=== PATIENT | male | born 1965 | race African-American/Black ===

== ENCOUNTER 2024-08-06 21:31 | Emergency (ER) | payer MEDICAID ==
[~2024-08-06] VITALS: Ht 175.3 cm; Wt 70.5 kg
[2024-08-06 21:32] VITALS: BP 138/85; PULSE 94; RESP 18; TEMP 98.7; O2SAT 100
== END 2024-08-07 02:30 | disposition left against medical advice (07) ==
LOC: EMS 21:37
DX: S01.412A Laceration without foreign body of left cheek and temporomandibular area, initial encounter (principal); Z53.21 Procedure and treatment not carried out due to patient leaving prior to being seen by health care provider; Y04.0XXA Assault by unarmed brawl or fight, initial encounter; Y93.89 Activity, other specified; Y92.89 Other specified places as the place of occurrence of the external cause; Y99.8 Other external cause status

== ENCOUNTER 2024-08-10 16:06 | Emergency (ER) | payer MEDICAID ==
[~2024-08-10] VITALS: Ht 175.3 cm; Wt 72.0 kg
[2024-08-10 16:10] VITALS: TEMP 97.9
[2024-08-10 19:20] VITALS: BP 133/87; PULSE 76; RESP 18; O2SAT 99
== END 2024-08-10 22:31 | disposition home or self-care (01) ==
LOC: EMS 16:06
DX: S20.211A Contusion of right front wall of thorax, initial encounter (principal); S09.90XA Unspecified injury of head, initial encounter; F17.210 Nicotine dependence, cigarettes, uncomplicated; Y04.0XXA Assault by unarmed brawl or fight, initial encounter; Y93.89 Activity, other specified; Y92.89 Other specified places as the place of occurrence of the external cause; Y99.8 Other external cause status
CPT/HCPCS: 70450; 71250; 99284